=== PATIENT | male | born 1935 | race Caucasian/White ===

== ENCOUNTER 2016-11-08 22:56 | Observation (INO) ==
--- NOTE | 2016-11-08 23:14 | Emergency Department Note ---
Disposition Clinical Impression: Acute exacerbation of chronic obstructive airways disease Disposition: Admitted As Inpatient Condition: Fair Instructions: Chronic Obstructive Pulmonary Disease (ED) Referrals: Kev Colindres DO [Primary Care Provider] - Time of Disposition: 01:00 SOB HPI - General Stated Complaint: Difficulty Breathing Source: patient Limitations: no limitations Nursing Notes Reviewed: Yes Vital Signs Reviewed: Yes - History of Present Illness Over the last 2 days Mr. Tian has had gradual onset of increased shortness of breath with productive cough. No nausea vomiting or diarrhea. No chest pain no palpitations. No myalgias. No fevers that he knows of. He does have a known diagnosis of COPD and continues to smoke cigarettes. He does not have home oxygen. He was brought by squad today because of his difficulty breathing. Pt Subjective Complaint: shortness of breath, cough - Related Data Home Medications Medication Instructions Recorded Confirmed Ascorbic Acid [Vitamin C] 500 mg PO DAILY 09/17/15 11/08/16 Clopidogrel [Plavix] 75 mg PO DAILY 09/17/15 11/08/16 Digoxin [Lanoxin] 0.125 mg PO DAILY 09/17/15 11/08/16 Ferrous Sulfate [Iron] 325 mg PO DAILY 09/17/15 11/08/16 Hydrocodone/Acetaminophen [[place] 1 each PO BID 09/17/15 11/08/16 5-325 Tablet] Metoprolol [Lopressor] 100 mg PO BID 09/17/15 11/08/16 NIFEdipine [Nifedipine ER] 60 mg PO DAILY 09/17/15 11/08/16 Omeprazole [PriLOSEC] 20 mg PO DAILY 09/17/15 11/08/16 Simvastatin [Zocor] 20 mg PO HS 09/17/15 11/08/16 Previous Rx's Medication Instructions Recorded Meclizine [Antivert] 12.5 mg PO TID #9 tablet 09/17/15 Allergies Allergy/AdvReac Type Severity Reaction Status Date / Time acetaminophen Allergy Dizziness Verified 11/08/16 23:03 [From Darvocet-N 100] propoxyphene Allergy Dizziness Verified 11/08/16 23:03 [From Darvocet-N 100] Constitutional: Denies: fever, chills ENT ED: Reports: congestion Cardiovascular: Reports: dyspnea on exertion. Denies: chest pain, palpitations Respiratory: Reports: cough, dyspnea, sputum production. Denies: hemoptysis Gastrointestinal: Denies: nausea, vomiting, diarrhea Musculoskeletal: Denies: myalgia Neurological: Denies: headache Endocrine: Reports: fatigue Past Medical History - Past Medical History Medical history: Reports: atrial fibrillation, GERD, hyperlipidemia, hypertension Psychiatric history: Reports: no psych history - Social History Smoking Status: Current every day smoker Smokeless Tobacco Status: No Alcohol use: Reports: none Drug use: Reports: none Physical Exam - General Limitations: no limitations General appearance: alert, in distress (Accessory muscle use but able to speak in full sentences) - Head Head exam: atraumatic, normocephalic - Eye Eye exam: Present: normal appearance - ENT ENT exam: normal exam, normal oropharynx, mucous membranes moist, TM's normal bilaterally, normal external ear exam - Neck Neck exam: Present: normal inspection. Absent: lymphadenopathy - Chest Chest inspection: Present: normal inspection, symmetric chest wall rise - Respiratory Respiratory exam: Present: wheezes (Very tight inspiratory expiratory wheezes with decreased air exchange bilaterally symmetrically.) - Cardiovascular Cardiovascular exam: Present: tachycardia, normal heart sounds. Absent: systolic murmur, diastolic murmur - Abdominal Exam Abdominal exam: Present: soft, Non-Tender - Extremities Exam Extremities exam: Present: normal inspection, other (no calf edema erythema or cord). Absent: pedal edema, calf tenderness - Neurological Exam Neurological exam: Present: alert - Psychiatric Psychiatric exam: Present: normal affect, normal mood - Skin Skin exam: Present: warm, dry Course Vital Signs Temperature 100.9 F H 11/08/16 22:58 Pulse Rate 106 11/08/16 22:58 Respiratory Rate 20 11/08/16 22:58 Blood Pressure 178/101 11/08/16 22:58 O2 Sat by Pulse Oximetry 93 11/08/16 22:58 Temperature 100.9 F H 11/08/16 22:58 Pulse Rate 108 11/09/16 01:10 Respiratory Rate 20 11/09/16 01:10 Blood Pressure 175/74 11/09/16 01:10 O2 Sat by Pulse Oximetry 88 11/09/16 01:10 Oxygen Delivery Oxygen Delivery Room Air Shortness of Breath/Dyspnea - MDM Narrative Medical decision making narrative: Shortness of breath secondary to acute exacerbation of COPD. He is febrile but symptoms are not consistent with influenza nor is there any radiographic or auscultation evidence for pneumonia. He was feeling somewhat better after 2 DuoNeb's and indeed he was not retracting but resting comfortably. He continues to have coarse inspiratory and expiratory wheezes but much less accessory muscle use. Room air saturations were 88%. He does not have home oxygen and therefore will be prudent to have him come in to the hospital secondary to this hypoxia. He will be started on Levaquin and get every 4 hour DuoNeb's along with Solu-Medrol. He does not appear as though there is a cardiac etiology for his symptoms and COPD exacerbation is more likely than a pulmonary embolus regarding a pulmonary etiology. He is in somewhat improved condition as he is transferred to the floor from the ER. - Lab Data Lab results reviewed: Yes I reviewed the patient's lab results. Result diagrams: 11/08/16 23:57 11/08/16 23:57 Lab Results 11/08/16 11/08/16 11/08/16 Range/Units 23:57 23:57 23:57 WBC 8.7 (4.3-11.1) K/mcL RBC 3.82 L (4.19-5.50) M/mcL Hgb 12.7 L (12.9-16.9) g/dL Hct 37.4 L (37.5-50.1) % MCV 97.9 (83.0-100.0) fL MCH 33.2 (28.0-33.3) pg MCHC 34.0 (31.6-35.5) g/dL RDW 15.6 H (11.5-14.5) % Plt Count 135 L (140-400) K/mcL MPV 10.0 (9.4-12.4) fL Immature Gran % 0.3 (0-4) % Seg Neutrophils % 82.7 % Lymphocytes % 6.7 % Monocytes % 9.9 % Eosinophils % 0.2 % Basophils % 0.2 % Neutrophils # 7.2 (1.6-8.9) K/mcL Lymphocytes # 0.6 (0.6-4.6) K/mcL Monocytes # 0.9 (0.0-1.3) K/mcL Eosinophils # 0.0 (0.0-0.6) K/mcL Basophils # 0.0 (0.0-0.2) K/mcL D-Dimer 1120 H (0-500) ng/mLFEU Sodium 137 (136-145) mEq/L Potassium 3.9 (3.5-4.5) mEq/L Chloride 104 (98-109) mEq/L Carbon Dioxide 20 (19-29) mEq/L BUN 29 H (8-26) mg/dL Creatinine 1.66 H (0.72-1.25) mg/dL Est GFR ( Amer) 48 L (> 60) Est GFR (Non-Af Amer) 40 L (> 60) BUN/Creatinine Ratio 17 (6-26) Glucose 129 H (70-99) mg/dL Calculated Osmolality 292 (280-300) Calcium 9.4 (8.6-10.8) mg/dL Total Bilirubin 0.4 (0.2-1.2) mg/dL AST 17 (5-34) Units/L ALT 15 (0-55) Units/L Alkaline Phosphatase 99 (38-126) Units/L Troponin I (0-0.03) ng/mL B-Natriuretic Peptide (0-100) pg/mL Serum Total Protein 7.9 (6.0-8.3) g/dL Albumin 3.5 (3.5-5.0) g/dL Globulin 4.4 H (2.4-3.5) g/dL Albumin/Globulin Ratio 0.8 L (1.1-2.2) 11/08/16 11/08/16 Range/Units 23:57 23:57 WBC (4.3-11.1) K/mcL RBC (4.19-5.50) M/mcL Hgb (12.9-16.9) g/dL Hct (37.5-50.1) % MCV (83.0-100.0) fL MCH (28.0-33.3) pg MCHC (31.6-35.5) g/dL RDW (11.5-14.5) % Plt Count (140-400) K/mcL MPV (9.4-12.4) fL Immature Gran % (0-4) % Seg Neutrophils % % Lymphocytes % % Monocytes % % Eosinophils % % Basophils % % Neutrophils # (1.6-8.9) K/mcL Lymphocytes # (0.6-4.6) K/mcL Monocytes # (0.0-1.3) K/mcL Eosinophils # (0.0-0.6) K/mcL Basophils # (0.0-0.2) K/mcL D-Dimer (0-500) ng/mLFEU Sodium (136-145) mEq/L Potassium (3.5-4.5) mEq/L Chloride (98-109) mEq/L Carbon Dioxide (19-29) mEq/L BUN (8-26) mg/dL Creatinine (0.72-1.25) mg/dL Est GFR ( Amer) (> 60) Est GFR (Non-Af Amer) (> 60) BUN/Creatinine Ratio (6-26) Glucose (70-99) mg/dL Calculated Osmolality (280-300) Calcium (8.6-10.8) mg/dL Total Bilirubin (0.2-1.2) mg/dL AST (5-34) Units/L ALT (0-55) Units/L Alkaline Phosphatase (38-126) Units/L Troponin I 0.01 (0-0.03) ng/mL B-Natriuretic Peptide 11 (0-100) pg/mL Serum Total Protein (6.0-8.3) g/dL Albumin (3.5-5.0) g/dL Globulin (2.4-3.5) g/dL Albumin/Globulin Ratio (1.1-2.2) - Radiology Data Radiology results reviewed: Yes I reviewed the patient's radiology results. - EKG Data EKG attestation: Yes I reviewed and interpreted this EKG. EKG results narrative: EKG as interpreted by me sinus tachycardia 105 bpm. Normal axis. No evidence of hypertrophy. No T wave abnormalities. Upsloping ST depressions in V4 V5 V6. No ST elevations. Compared to August [address] depressions appear to be new.
[2016-11-08] MEDS ORDERED: Ipratropium/Albuterol Neb 3 ML IH ONE ×2 (23:33→23:35)
[2016-11-09 00:10] LABS: Basophils % 0.2 %; Eosinophils % 0.2 %; Hematocrit 37.4 % (37.5-50.1); Hemoglobin 12.7 g/dL (12.9-16.9); Immature Granulocytes % 0.3 % (0-4); Lymphocytes # 0.6 K/mcL (0.6-4.6); Lymphocytes % 6.7 %; Mean Corpuscular Hemoglobin 33.2 pg (28.0-33.3); Mean Corpuscular Volume 97.9 fL (83.0-100.0); Monocytes # 0.9 K/mcL (0.0-1.3); Monocytes % 9.9 %; Neutrophils # 7.2 K/mcL (1.6-8.9); Platelet Count 135 K/mcL (140-400); Red Blood Count 3.82 M/mcL (4.19-5.50); Red Cell Distribution Width 15.6 % (11.5-14.5); Segmented Neutrophils % 82.7 %
[2016-11-09 00:45] LABS: Albumin 3.5 g/dL (3.5-5.0); Albumin/Globulin Ratio 0.8 (1.1-2.2); Bilirubin,Total 0.4 mg/dL (0.2-1.2); Calcium 9.4 mg/dL (8.6-10.8); Globulin 4.4 g/dL (2.4-3.5); Potassium 3.9 mEq/L (3.5-4.5); Total Protein 7.9 g/dL (6.0-8.3)
[2016-11-09] MEDS ORDERED: MethylPREDNISolone 40 MG/ML VIAL IVP ONE (01:46)
[2016-11-09] MEDS ORDERED: Acetaminophen 325 MG TABLET PO PRN (01:46)
[2016-11-09] MEDS ORDERED: Ondansetron 4 MG/2 ML VIAL IVP PRN (01:46)
[2016-11-09] MEDS ORDERED: Naloxone 0.4 MG/ML INJ IVP PRN (01:46)
[2016-11-09] MEDS ORDERED: MOM Conc 10 ML UD.LIQ PO PRN (01:46)
[2016-11-09] MEDS: Levofloxacin 500 MG/100 ML 500 MG/100 ML BAG IVPB SCH (03:10)
[2016-11-09] MEDS: Ipratropium/Albuterol Neb 3 ML IH SCH ×5 (03:24→22:15)
[2016-11-09] MEDS: *HR* Enoxaparin 40 MG/0.4 ML SYRINGE SQ SCH ×2 (03:55→04:33)
[2016-11-09 05:49] LABS: Basophils % 0.1 %; Hematocrit 34.3 % (37.5-50.1); Hemoglobin 11.8 g/dL (12.9-16.9); Immature Granulocytes % 0.4 % (0-4); Lymphocytes # 0.5 K/mcL (0.6-4.6); Mean Corpuscular HGB Conc 34.4 g/dL (31.6-35.5); Mean Corpuscular Hemoglobin 33.4 pg (28.0-33.3); Mean Corpuscular Volume 97.2 fL (83.0-100.0); Mean Platelet Volume 10.2 fL (9.4-12.4); Monocytes # 0.4 K/mcL (0.0-1.3); Monocytes % 4.1 %; Neutrophils # 8.1 K/mcL (1.6-8.9); Platelet Count 129 K/mcL (140-400); Red Blood Count 3.53 M/mcL (4.19-5.50); Red Cell Distribution Width 15.5 % (11.5-14.5); Segmented Neutrophils % 90.4 %
[2016-11-09 06:01] LABS: Albumin 3.3 g/dL (3.5-5.0); Albumin/Globulin Ratio 0.8 (1.1-2.2); Bilirubin,Total 0.4 mg/dL (0.2-1.2); Calcium 9.4 mg/dL (8.6-10.8); Globulin 4.2 g/dL (2.4-3.5); Potassium 4.2 mEq/L (3.5-4.5); Total Protein 7.5 g/dL (6.0-8.3)
[2016-11-09] MEDS ORDERED: *HR* Enoxaparin 40 MG/0.4 ML SYRINGE SQ SCH (07:00)
[2016-11-09] MEDS ORDERED: Levofloxacin 500 MG/100 ML 500 MG/100 ML BAG IVPB SCH ×2 (09:00)
[2016-11-09] MEDS ORDERED: *HR* Digoxin 0.125 MG TABLET PO SCH (12:00)
[2016-11-09] MEDS ORDERED: NIFEdipine XL (24 HR) 60 MG TAB.ER.24 PO SCH (12:00)
[2016-11-09] MEDS: Metoprolol 100 MG TABLET PO SCH (12:55)
[2016-11-09] MEDS: NIFEdipine XL (24 HR) 30 MG TAB.ER.24 PO SCH (13:08)
--- NOTE | 2016-11-09 13:12 | Internal Med History&Physical ---
Date of Encounter: 11/09/16 Time of Encounter: 13:10 Assessment and Plan (1) Acute exacerbation of chronic obstructive airways disease Current visit: Yes Status: Chronic Continue pulmonate treatment and IV antibiotics. Continue to monitor blood sugar Internal Medicine - H&P: HPI Admitted From: Emergency Dept Plans for Post Hospital Care: Home History of present illness: Mr. Tian is a 81 year old male Over the last 2 days Mr. Tian has had gradual onset of increased shortness of breath with productive cough. No nausea vomiting or diarrhea. No chest pain no palpitations. No myalgias. No fevers that he knows of. He does have a known diagnosis of COPD and continues to smoke cigarettes. He does not have home oxygen. He was brought by squad today because of his difficulty breathing. He is admitted for primary treatment. Monitor oxygenation. Antibiotics. Past Med Surg Social Fam HX - Past Medical History Medical history: atrial fibrillation, GERD, hyperlipidemia, hypertension Psychiatric history: no psych history - Social History Smoking Status: Current every day smoker Packs per day: 1-2 Smokeless Tobacco Status: No Alcohol use: none Drug use: none - Family History Father History Unknown: Yes Internal Medicine - H&P: Meds Ascorbic Acid [Vitamin C] 500 mg PO DAILY 09/17/15 [History] Clopidogrel [Plavix] 75 mg PO DAILY 09/17/15 [History] Digoxin [Lanoxin] 0.125 mg PO DAILY 09/17/15 [History] Ferrous Sulfate [Iron] 325 mg PO DAILY 09/17/15 [History] Hydrocodone/Acetaminophen [[place] 5-325 Tablet] 1 each PO BID 09/17/15 [History] Meclizine [Antivert] 12.5 mg PO TID #9 tablet 09/17/15 [Rx] Metoprolol [Lopressor] 100 mg PO BID 09/17/15 [History] NIFEdipine [Nifedipine ER] 60 mg PO DAILY 09/17/15 [History] Omeprazole [PriLOSEC] 20 mg PO DAILY 09/17/15 [History] Simvastatin [Zocor] 20 mg PO HS 09/17/15 [History] Allergies acetaminophen [From Darvocet-N 100] Allergy (Verified 11/08/16 23:03) Dizziness propoxyphene [From Darvocet-N 100] Allergy (Verified 11/08/16 23:03) Dizziness All Systems PM: A 10-system review of systems was performed and is negative for pertinent findings except as documented above in the HPI. - Constitutional Constitutional: fatigue - Cardiovascular Cardiovascular ROS IM: no chest pain, no diaphoresis, no dyspnea, no lightheadedness, no palpitations, no syncope - Respiratory Respiratory: cough, dyspnea, dyspnea on exertion, wheezing - Gastrointestinal Gastrointestinal: no abdominal pain, no diarrhea, no hematemesis, no hematochezia, no melena, no nausea, no vomiting - Musculoskeletal Musculoskeletal ROS IM: no numbness, no tingling - Integumentary Integumentary IM: no rash, no unusual bruising - Constitutional Vitals: Temp Pulse Resp BP Pulse Ox 97.5 F L 18 88 202/105 94 11/09/16 11:00 11/09/16 11:00 11/09/16 11:00 11/09/16 11:11/09/16 11:00 General appearance: Present: A&O X 3, pleasant, no acute distress - Respiratory Respiratory exam: Present: rhonchi, wheezes - Cardiovascular Cardiovascular exam: Present: irregular rhythm - GI/Abdominal GI/Abdominal exam: Present: normal bowel sounds, soft, no peritoneal signs. Absent: distended, tenderness - Extremities Exam Extremities exam: Present: warm, radial pulses palpable and symetrical. Absent : calf tenderness, cyanotic, pedal edema - Neurological Exam Neurological exam: Present: CN II-XII intact, oriented X3, no focal deficits. Absent: pronater drift, facial droop, speech deficit Internal Med - H&P Results - Labs CBC & Chem 7: 11/09/16 05:43 11/09/16 05:43 Labs: Short CBC 11/09/16 Range/Units 05:43 WBC 9.0 (4.3-11.1) K/mcL Hgb 11.8 L (12.9-16.9) g/dL Hct 34.3 L (37.5-50.1) % Plt Count 129 L (140-400) K/mcL Neutrophils # 8.1 (1.6-8.9) K/mcL BMP 11/09/16 05:43 Sodium 137 Potassium 4.2 Chloride 104 Carbon Dioxide 21 BUN 25 Creatinine 1.44 H Glucose 146 H Calcium 9.4 Cardiac Enzymes 11/09/16 11/09/16 Range/Units 05:43 12:10 Troponin I 0.00 0.00 (0-0.03) ng/mL Liver Function 11/09/16 Range/Units 05:43 Total Bilirubin 0.4 (0.2-1.2) mg/dL AST 15 (5-34) Units/L ALT 14 (0-55) Units/L Alkaline Phosphatase 92 (38-126) Units/L Albumin 3.3 L (3.5-5.0) g/dL - VTE Documentation of Mechanical Device: Graduated compression elastic hosiery
[2016-11-09] MEDS ORDERED: Ascorbic Acid 500 MG TABLET PO SCH ×2 (21:00)
[2016-11-10] MEDS: Ipratropium/Albuterol Neb 3 ML IH SCH ×4 (01:00→13:07)
[2016-11-10] MEDS: *HR* Enoxaparin 40 MG/0.4 ML SYRINGE SQ SCH (06:26)
[2016-11-10] MEDS: Metoprolol 100 MG TABLET PO SCH (08:19)
[2016-11-10] MEDS: NIFEdipine XL (24 HR) 30 MG TAB.ER.24 PO SCH (08:19)
[2016-11-10] MEDS: Levofloxacin 500 MG/100 ML 500 MG/100 ML BAG IVPB SCH (08:40)
[2016-11-10] MEDS ORDERED: *HR* Digoxin 0.125 MG TABLET PO SCH (09:00)
[2016-11-10 11:43] VITALS: BP 120/66
--- NOTE | 2016-11-10 14:58 | Discharge Summary ---
Date of Encounter: 11/10/16 Time of Encounter: 14:56 - Discharge Diagnosis (1) Acute exacerbation of chronic obstructive airways disease Priority: Primary Status: Chronic - Discharge Medications Home Medications: Ascorbic Acid [Vitamin C] 500 mg PO DAILY 09/17/15 [History] Clopidogrel [Plavix] 75 mg PO DAILY 09/17/15 [History] Digoxin [Lanoxin] 0.125 mg PO DAILY 09/17/15 [History] Ferrous Sulfate [Iron] 325 mg PO DAILY 09/17/15 [History] Hydrocodone/Acetaminophen [[place] 5-325 Tablet] 1 each PO BID 09/17/15 [History] Meclizine [Antivert] 12.5 mg PO TID #9 tablet 09/17/15 [Rx] Metoprolol [Lopressor] 100 mg PO BID 09/17/15 [History] NIFEdipine [Nifedipine ER] 60 mg PO DAILY 09/17/15 [History] Omeprazole [PriLOSEC] 20 mg PO DAILY 09/17/15 [History] Simvastatin [Zocor] 20 mg PO HS 09/17/15 [History] Allergies/Adverse Reactions: Allergies acetaminophen [From Darvocet-N 100] Allergy (Verified 11/08/16 23:03) Dizziness propoxyphene [From Darvocet-N 100] Allergy (Verified 11/08/16 23:03) Dizziness Procedures/tests Complete & Pending: Procedures Performed prior 72 hours Category Date Time Status ECG 12 lead ECG [ECG] Routine Y 11/08/16 23:02 Completed Date of admission: 11/09/16 01:42 Primary care physician: Kev Colindres Discharging clinician: Stephan Hanson Anticipated date of discharge: 11/10/16 - Patient Status Disposition: Home, Self-Care Condition: Good Functional capacity at discharge: independent ambulation Overall status at discharge: patient is progressing back to baseline - Discharge Instructions Instructions: How to Stop Smoking (DC), Chronic Obstructive Pulmonary Disease ( ED) Follow Up With: yazmin colindres [Other] - 11/17/16 11:00 am Forms: ED Satisfaction Letter Additional Instructions: Follow-up appointments: If there is not an appointment listed below, please call your physician and schedule a follow-up appointment. If you have congestive heart failure and your symptoms return, make an appointment with your physician. Medication List: Carry an up to date list of medications you are taking at all time. We have given you an updated medication list including any new medications that you have been prescribed. Please provide that list to your primary provider Symptoms: If your condition changes or you experience any of the following symptoms, notify your physician immediately: Unusual or worsening pain, fever, persistent nausea and vomiting, bleeding, increase in swelling (especially in your legs), sudden weight gain, extreme dizziness, chest pain, increased drainage or redness from a wound or incision. Go to the emergency department if you experience a problem with breathing. Weights: If you have a history of swelling or shortness of breath, weigh yourself daily and notify your physician if you have a weight gain of two or more pounds in one day or 5 or more pounds in a week. If you experience any of the warning signs for stroke: Sudden numbness or weakness of the face, arm or leg; especially on one side of the body, sudden confusion, trouble speaking or understanding, sudden trouble seeing in one or both eyes, sudden trouble walking, dizziness, loss of balance or coordination, sudden sever headache with no cause; Call 911 or go to the emergency room. Stroke is a medical emergency. Some risk factors for stroke: Age, cigarette smoking, diabetes, excessive alcohol consumption, family history , high blood pressure, overweight, physical inactivity, prior stroke, heart attack, diagnosis of carotid artery stenosis or other artery disease. If you smoke, STOP: Smoking or tobacco use significantly increases your risk of heart and lung disease. Your chance of disease greatly increases if you continue to smoke. For more information, call the [place] tobacco quit line for smoking cessation QUIT-NOW ( ) - Diet and Activity Activity: increase activity as tolerated Diet: advance to your usual diet Interval History: admitted for increased shortness of breath. He unfortunately continues to smoke. Hospital course: Mr. Tian is a 81 year old male Patient is up and about states he feels great DC'd the IV and is ambulating in the [place]. I noted back cigarettes in his shirt pocket Time spent discussing smoking cessation with patient: 3 to 10 minutes - Time Spent with Patient Total time spent providing and/or coordinating discharge services: Less than 30 minutes - Constitutional Vitals: Temp Pulse Resp BP Pulse Ox 98.2 F 65 18 120/66 92 11/10/16 11:42 11/10/16 11:42 11/10/16 11:42 11/10/16 11:42 11/10/16 11:42 General appearance: Present: A&O X 3, pleasant, no acute distress - Head Head exam: Present: atraumatic, normal inspection, normocephalic - Neck Neck exam general surgery: Present: supple, trachea midline. Absent: lymphadenopathy - Respiratory Respiratory exam: Present: CTAB. Absent: accessory muscle use, rales, rhonchi, wheezes - Cardiovascular Cardiovascular exam: Present: RRR, +S1, +S2. Absent: diastolic murmur, gallop, rubs, systolic murmur - VTE Documentation of Mechanical Device: Graduated compression elastic hosiery
--- NOTE | 2016-11-10 21:28 | Electrocardiograph Report ---
[place] [id number] Test Date: 2016-11-08 Pat Name: Lizandro Tian Department: 2000 Room: 116 Gender: M Purification Director: RKJ : 1935 Requested By: Stephan Hanson Order Number: [id number] Reading MD: Blayne Ryan MD Measurements Intervals [place] Rate: 104 P: 65 IA: 162 QRS: 83 QRSD: 95 T: 65 QT: 340 QTc: 401 Interpretive Statements SINUS TACHYCARDIA BASELINE ARTIFACT Electronically Signed On 11-10-2016 21:27:03 EDT by Blayne Ryan MD
== END 2016-11-10 15:15 | disposition home or self-care (01) ==
LOC: INPGRE 22:56 → EMEROOGRE 22:56 → INPGRE 11-09 01:50
PROVIDERS: ADMIT Internal Medicine; ATTEND Internal Medicine

== ENCOUNTER 2017-07-21 21:02 | Observation (INO) ==
[2017-07-21] MEDS ORDERED: 0.9 % Sodium Chloride 1,000 ML IVC ONE (21:32)
[2017-07-21] MEDS ORDERED: Ibuprofen 600 MG TABLET PO ONE (21:33)
--- NOTE | 2017-07-21 21:41 | Emergency Department Note ---
Disposition Clinical Impression: Community acquired pneumonia, Acute exacerbation of chronic obstructive airways disease, CAD (coronary artery disease), HTN (hypertension), History of AAA (abdominal aortic aneurysm) repair Disposition: Admitted As Inpatient Condition: Fair Referrals: Kev Colindres DO [Primary Care Provider] - Forms: ED Satisfaction Letter Time of Disposition: 23:09 ([facility] OBSV) Fever HPI - General Chief Complaint: ED Fever Stated Complaint: fever, weakness Time Seen by Provider: 07/21/17 21:08 Source: patient Mode of arrival: ambulatory Limitations: no limitations Nursing Notes Reviewed: Yes Vital Signs Reviewed: Yes - History of Present Illness HPI Narrative: Patient presents to emergency room with fever chills cough congestion runny nose and sore throat generalized body aches unable to get better patient states he has been sick for about a week he started with Robitussin last week he denies any blurred vision double vision loss vision he is adamant he has had no chest pain no chest pressure he has a known aortic aneurysm which is monitored any blurred vision double vision loss vision denies any diarrhea melena hematochezia hematemesis patient denies any knowledge of any known flu carriers near him Pt is aware of thoracic aneursym Pt Subjective Complaint: fever, malaise, rigors Onset (ago): Just [employer] Temperature Source: subjective Associated symptoms: Reports: chills, myalgias, headache, nasal congestion, sore throat, cough, nausea. Denies: rigors, rhinorrhea, stiff neck, chest pain , dyspnea, abdominal pain, vomiting, diarrhea, dysuria, rash, altered mental status, night sweats, weight loss Improves with: nothing Worsens with: nothing Treatments prior to arrival fever: acetaminophen, ibuprofen - Related Data Home Medications Medication Instructions Recorded Confirmed Ascorbic Acid [Vitamin C] 500 mg PO DAILY 09/17/15 07/21/17 Clopidogrel [Plavix] 75 mg PO DAILY 09/17/15 07/21/17 Digoxin [Lanoxin] 0.125 mg PO DAILY 09/17/15 07/21/17 Ferrous Sulfate [Iron] 325 mg PO DAILY 09/17/15 07/21/17 Metoprolol [Lopressor] 100 mg PO BID 09/17/15 07/21/17 NIFEdipine [Nifedipine ER] 60 mg PO DAILY 09/17/15 07/21/17 Omeprazole [PriLOSEC] 20 mg PO DAILY 09/17/15 07/21/17 Simvastatin [Zocor] 20 mg PO HS 09/17/15 07/21/17 Allergies Allergy/AdvReac Type Severity Reaction Status Date / Time acetaminophen Allergy Dizziness Verified 04/05/17 21:51 [From Darvocet-N 100] propoxyphene Allergy Dizziness Verified 04/05/17 21:51 [From Darvocet-N 100] All systems ED: reviewed and negative except as stated. Review of Systems: As Per HPI Constitutional: Reports: fever, chills Eyes: Denies: eye pain, eye discharge ENT ED: Reports: ear pain, throat pain, congestion Cardiovascular: Denies: chest pain, palpitations, dyspnea on exertion Respiratory: Reports: cough, wheezes, sputum production Gastrointestinal: Denies: abdominal pain, nausea, vomiting Genitourinary: Denies: urgency, dysuria, frequency Musculoskeletal: Denies: back pain, neck pain Integumentary: Denies: rash Neurological: Denies: headache, weakness Psychiatric: Denies: anxiety Endocrine: Denies: fatigue Hematological/Lymphatic: Denies: easy bleeding Allergic/Immunologic: Denies: facial swelling Fever PMH - Past Medical History Medical history: Reports: aortic aneurysm, atrial fibrillation, COPD, coronary artery disease, GERD, hyperlipidemia, hypertension, myocardial infarction Surgical history: Reports: other (renal artery stent, cardiac stent) Psychiatric history: Reports: no psych history - Social History Smoking Status: Current every day smoker Alcohol use: Reports: none Drug use: Reports: none Physical Exam - General Limitations: no limitations General appearance: alert, in no apparent distress, other (ill appearing) - Head Head exam: atraumatic, normocephalic, normal inspection - Eye Eye exam: Present: normal appearance, PERRL, EOMI - ENT ENT exam: normal exam, normal oropharynx, mucous membranes moist - Neck Neck exam: Present: normal inspection, full ROM, trachea midline. Absent: meningismus - Chest Chest inspection: Present: normal inspection, symmetric chest wall rise - Respiratory Respiratory exam: Present: prolonged expiratory phase, other (rhonci) - Cardiovascular Cardiovascular exam: Present: regular rate, normal rhythm, normal heart sounds - Abdominal Exam Abdominal exam: Present: soft, Non-Tender, normal bowel sounds. Absent: mass, pulsatile mass - Expanded Upper Extremity Exam Shoulder exam: Present: normal inspection, full ROM Arm exam: Present: normal inspection, full ROM Elbow exam: Present: normal inspection, full ROM Forearm/Wrist exam: Present: normal inspection, full ROM Hand exam: Present: normal inspection, full ROM Vascular exam: Normal: capillary refill, radial pulse - Expanded Lower Extremity Exam Hip/Pelvis exam: Present: normal inspection, full ROM Upper leg exam: Present: normal inspection, full ROM Knee exam: Present: normal inspection, full ROM Lower leg exam: Present: normal inspection, full ROM Ankle exam: Present: normal inspection, full ROM Foot/toe exam: Present: normal inspection, full ROM Neurovascular/Tendon exam: Present: normal capillary refill, normal fine/light touch. Absent: motor deficit, sensory deficit, tendon deficit Gait: observed and normal - Back Exam Back exam: Present: normal inspection, full ROM. Absent: muscle spasm - Neurological Exam Neurological exam: Present: alert, oriented X3, CN II-XII intact, normal gait - Psychiatric Psychiatric exam: Present: normal affect, normal mood - Skin Skin exam: Present: warm, dry, intact, normal color Course Course Narrative: Patient is seen and examined she meets sepsis criteria by the initial presentation of the tachycardia and the temperature respiratory rate waiting for the second criteria to see if he needs end organ based upon laboratory data chest x-ray did not show pneumonia but classically he presents like pneumonia and almost like an influenza that influenza swab was negative as result we did do a chest x-ray have recommended family admission hydration antibiosis patient appears to be agreeable Vital Signs Temperature 102.8 F H 07/21/17 21:08 Pulse Rate 98 07/21/17 21:08 Respiratory Rate 22 07/21/17 21:08 Blood Pressure 180/94 07/21/17 21:08 O2 Sat by Pulse Oximetry 93 07/21/17 21:08 Temperature 101.2 F H 07/21/17 22:44 Pulse Rate 92 07/21/17 22:44 Respiratory Rate 18 07/21/17 22:44 Blood Pressure 159/86 07/21/17 22:44 O2 Sat by Pulse Oximetry 95 07/21/17 22:44 Oxygen Delivery Oxygen Delivery Room Air Fever - Differential Diagnosis Likely: fever of occult origin, community acquired pneumonia, viral infection, sepsis, influenza - Medical Records Medical records reviewed: Yes I reviewed the patient's medical records. - Lab Data Lab results reviewed: Yes I reviewed the patient's lab results. Result diagrams: 07/21/17 21:40 07/21/17 21:40 Lab Results 07/21/17 07/21/17 07/21/17 Range/Units 21:40 21:40 21:40 WBC 14.0 H (4.3-11.1) K/mcL RBC 3.63 L (4.19-5.50) M/mcL Hgb 12.3 L (12.9-16.9) g/dL Hct 36.5 L (37.5-50.1) % MCV 100.6 H (83.0-100.0) fL MCH 33.9 H (28.0-33.3) pg MCHC 33.7 (31.6-35.5) g/dL RDW 15.8 H (11.5-14.5) % Plt Count 192 (140-400) K/mcL MPV 10.5 (9.4-12.4) fL Immature Gran % 0.6 (0-4) % Seg Neutrophils % 83.6 % Lymphocytes % 5.5 % Monocytes % 10.0 % Eosinophils % 0.2 % Basophils % 0.1 % Neutrophils # 11.7 H (1.6-8.9) K/mcL Lymphocytes # 0.8 (0.6-4.6) K/mcL Monocytes # 1.4 H (0.0-1.3) K/mcL Eosinophils # 0.0 (0.0-0.6) K/mcL Basophils # 0.0 (0.0-0.2) K/mcL PT 11.2 (9.4-12.1) Seconds INR 1.0 APTT 29.3 (26.0-36.0) Seconds Sodium 137 (136-145) mEq/L Potassium 4.4 (3.5-4.5) mEq/L Chloride 104 (98-109) mEq/L Carbon Dioxide 22 (19-29) mEq/L BUN 23 (8-26) mg/dL Creatinine 1.71 H (0.72-1.25) mg/dL Est GFR ( Amer) 47 L (> 60) Est GFR (Non-Af Amer) 38 L (> 60) BUN/Creatinine Ratio 13 (6-26) Glucose 145 H (70-99) mg/dL Calculated Osmolality 290 (280-300) Lactic Acid (0.5-2.2) mmol/L Calcium 10.1 (8.6-10.8) mg/dL Total Bilirubin 0.3 (0.2-1.2) mg/dL AST 30 (5-34) Units/L ALT 32 (0-55) Units/L Alkaline Phosphatase 118 (38-126) Units/L Serum Total Protein 8.2 (6.0-8.3) g/dL Albumin 3.6 (3.5-5.0) g/dL Globulin 4.6 H (2.4-3.5) g/dL Albumin/Globulin Ratio 0.8 L (1.1-2.2) 07/21/17 Range/Units 21:40 WBC (4.3-11.1) K/mcL RBC (4.19-5.50) M/mcL Hgb (12.9-16.9) g/dL Hct (37.5-50.1) % MCV (83.0-100.0) fL MCH (28.0-33.3) pg MCHC (31.6-35.5) g/dL RDW (11.5-14.5) % Plt Count (140-400) K/mcL MPV (9.4-12.4) fL Immature Gran % (0-4) % Seg Neutrophils % % Lymphocytes % % Monocytes % % Eosinophils % % Basophils % % Neutrophils # (1.6-8.9) K/mcL Lymphocytes # (0.6-4.6) K/mcL Monocytes # (0.0-1.3) K/mcL Eosinophils # (0.0-0.6) K/mcL Basophils # (0.0-0.2) K/mcL PT (9.4-12.1) Seconds INR APTT (26.0-36.0) Seconds Sodium (136-145) mEq/L Potassium (3.5-4.5) mEq/L Chloride (98-109) mEq/L Carbon Dioxide (19-29) mEq/L BUN (8-26) mg/dL Creatinine (0.72-1.25) mg/dL Est GFR ( Amer) (> 60) Est GFR (Non-Af Amer) (> 60) BUN/Creatinine Ratio (6-26) Glucose (70-99) mg/dL Calculated Osmolality (280-300) Lactic Acid 2.0 (0.5-2.2) mmol/L Calcium (8.6-10.8) mg/dL Total Bilirubin (0.2-1.2) mg/dL AST (5-34) Units/L ALT (0-55) Units/L Alkaline Phosphatase (38-126) Units/L Serum Total Protein (6.0-8.3) g/dL Albumin (3.5-5.0) g/dL Globulin (2.4-3.5) g/dL Albumin/Globulin Ratio (1.1-2.2) - Radiology Data Radiology results reviewed: Yes I reviewed the patient's radiology results. ITS Impressions Chest X-Ray 07/21/17 21:32 IMPRESSION: 1. No acute cardiopulmonary process identified. 2. Re- demonstration of thoracic aortic ectasia. D/ / Chepe Richardson MD / Chepe Richardson MD Interpreting Provider: Chepe Richardson MD - EKG Data EKG attestation: Yes I reviewed and interpreted this EKG. EKG results narrative: Sinus tach rate 101 by mouth 156 QRS 95 QT 327 axis -31 Critical Care Time Critical Care Time: Yes Total Critical Care Time: 35 Attestation: Critical care performed: 35 minutes as result of obtaining a CAT scan showing was consistent with a thoracic aneurysm but he is been worked up in addition for the possibility of an underlying pneumonia with patient meeting sepsis criteria after fluid bolus of 1 L patient was showing improved perfusion to the peripheral organs with brisk cap refill no cyanosis pink tissue strong peripheral pulses noted heart rate is improved blood pressure is down patient is afebrile lungs are still with rhonchi heart still slightly borderline tachycardic extremities show no peripheral edema mentation is clear Time is exclusive of separately billable procedures. Time includes: direct patient care, patient reassessment, coordination of patient care, interpretation of data (laboratory data, radiology data, and respiratory data), review of patient's medical records, medical consultation and documentation of patient care. Procedures included in critical care time: Procedures excluded from critical care time:
[2017-07-21 21:53] LABS: Basophils % 0.1 %; Eosinophils % 0.2 %; Hematocrit 36.5 % (37.5-50.1); Hemoglobin 12.3 g/dL (12.9-16.9); Immature Granulocytes % 0.6 % (0-4); Lymphocytes # 0.8 K/mcL (0.6-4.6); Lymphocytes % 5.5 %; Mean Corpuscular HGB Conc 33.7 g/dL (31.6-35.5); Mean Corpuscular Hemoglobin 33.9 pg (28.0-33.3); Mean Corpuscular Volume 100.6 fL (83.0-100.0); Mean Platelet Volume 10.5 fL (9.4-12.4); Monocytes # 1.4 K/mcL (0.0-1.3); Neutrophils # 11.7 K/mcL (1.6-8.9); Platelet Count 192 K/mcL (140-400); Red Blood Count 3.63 M/mcL (4.19-5.50); Red Cell Distribution Width 15.8 % (11.5-14.5); Segmented Neutrophils % 83.6 %
[2017-07-21 21:54] LABS: Prothrombin Time 11.2 Seconds (9.4-12.1)
[2017-07-21 21:56] LABS: Activated Partial Thrombo Time 29.3 Seconds (26.0-36.0)
[2017-07-21] MEDS ORDERED: Azithromycin 500 MG in D5% in Water 250 ML IVPB ONE (22:01)
[2017-07-21 22:04] LABS: Albumin 3.6 g/dL (3.5-5.0); Albumin/Globulin Ratio 0.8 (1.1-2.2); Bilirubin,Total 0.3 mg/dL (0.2-1.2); Calcium 10.1 mg/dL (8.6-10.8); Globulin 4.6 g/dL (2.4-3.5); Potassium 4.4 mEq/L (3.5-4.5); Total Protein 8.2 g/dL (6.0-8.3)
[2017-07-21] MEDS: 0.9 % Sodium Chloride 1,000 ML IVC SCH ×2 (22:54→23:33)
[2017-07-21] MEDS ORDERED: cloNIDine HCl 0.1 MG TABLET PO STA (23:06)
[2017-07-21] MEDS ORDERED: cefTRIAXone 2,000 MG in Water for inj. (sterile) 20 ML 20 ML IVP SCH (23:50)
[2017-07-21] MEDS ORDERED: Acetaminophen 325 MG TABLET PO PRN (23:50)
[2017-07-21] MEDS ORDERED: Azithromycin 500 MG in D5% in Water 250 ML IVPB SCH (23:50)
[2017-07-21] MEDS ORDERED: Ondansetron 4 MG/2 ML VIAL IVP PRN (23:50)
[2017-07-21] MEDS ORDERED: Naloxone 0.4 MG/ML INJ IVP PRN (23:50)
[2017-07-21] MEDS ORDERED: Ibuprofen 400 MG TABLET PO PRN (23:50)
[2017-07-22] MEDS: 0.9 % Sodium Chloride 1,000 ML IVC SCH ×5 (00:41→10:35)
[2017-07-22 01:57] LABS: Bilirubin,Urine Negative (Negative); Blood,Urine Negative (Negative); Clarity,Urine Slightly Cloudy (Clear); Glucose,Urine (UA) Normal (Normal); Ketones,Urine Negative (Negative); Leukocyte Esterase,Urine Small (Negative); Nitrite,Urine Negative (Negative); PH,Urine 5.5 pH Units (5.0-8.0); Protein,Urine 30 mg/dL (Neg-Trace); Specific Gravity,Urine 1.025 (1.010-1.025); Urobilinogen,Urine Normal (Normal)
[2017-07-22 02:00] LABS: Color,Urine Light Yellow (Yellow)
[2017-07-22 02:01] LABS: Bacteria,Urine Few per hpf (None-Few); Hyaline Casts,Urine Few per lpf (None-Few)
[2017-07-22 02:52] LABS: Basophils % 0.2 %; Eosinophils # 0.1 K/mcL (0.0-0.6); Eosinophils % 0.4 %; Hematocrit 30.6 % (37.5-50.1); Immature Granulocytes % 0.5 % (0-4); Lymphocytes # 1.8 K/mcL (0.6-4.6); Lymphocytes % 13.7 %; Mean Corpuscular HGB Conc 33.7 g/dL (31.6-35.5); Mean Corpuscular Hemoglobin 34.3 pg (28.0-33.3); Mean Platelet Volume 10.1 fL (9.4-12.4); Monocytes # 1.4 K/mcL (0.0-1.3); Monocytes % 10.5 %; Neutrophils # 9.9 K/mcL (1.6-8.9); Platelet Count 152 K/mcL (140-400); Red Cell Distribution Width 15.8 % (11.5-14.5); Segmented Neutrophils % 74.7 %
[2017-07-22 03:06] LABS: INR 1.1; Prothrombin Time 11.8 Seconds (9.4-12.1)
[2017-07-22 03:08] LABS: Activated Partial Thrombo Time 29.1 Seconds (26.0-36.0)
[2017-07-22 05:25] LABS: Hemoglobin 10.3 g/dL (12.9-16.9)
[2017-07-22] MEDS: NIFEdipine XL (24 HR) 30 MG TAB.ER.24 PO SCH (09:28)
[2017-07-22] MEDS: *HR* Digoxin 0.125 MG TABLET PO SCH (09:28)
[2017-07-22] MEDS: Ascorbic Acid 500 MG TABLET PO SCH (09:28)
[2017-07-22] MEDS: Metoprolol 100 MG TABLET PO SCH ×2 (09:28→20:18)
--- NOTE | 2017-07-22 11:46 | Internal Med Progress Note ---
Date of Encounter: 07/22/17 Time of Encounter: 11:44 - Assessment and plan (1) Community acquired pneumonia Current Visit: Yes Status: Acute Assessment and plan: improving. continue IV atb Qualifiers: Laterality: right Lung location: middle lobe of lung Qualified Code(s): J18.1 - Lobar pneumonia, unspecified organism (2) Acute exacerbation of chronic obstructive airways disease Current Visit: Yes Status: Chronic Assessment and plan: continue inhaled meds (3) Atrial fibrillation Current Visit: No Status: Chronic Assessment and plan: continue plavix. rate and rythm stable Qualifiers: Atrial fibrillation type: paroxysmal Qualified Code(s): I48.0 - Paroxysmal atrial fibrillation - Time Spent With Patient 25 - 35 minutes - Subjective Interval history: states cough and SOB has improved. denies fever, chills, NVD. VSS. O2 at 95 % RA. disscussed smoking cessation. was diagnosed with COPD a few years ago and continues to have a cough daily. smokes 1 pack a day. uses nebulizer at home. - Constitutional Vitals: Temp Pulse Resp BP Pulse Ox 97.6 F 74 16 142/77 95 07/22/17 07:34 07/22/17 07:34 07/22/17 07:34 07/22/17 07:34 07/22/17 07:34 General appearance: Present: A&O X 3, pleasant, no acute distress, answers questions appropriately - Head Head exam: Present: atraumatic, normocephalic - Eye Eye exam: Present: PERRL, conjuntiva pink, sclera anicteric Pupils: Present: PERRL - Neck Neck exam general surgery: Present: supple, trachea midline. Absent: lymphadenopathy - Respiratory Respiratory exam: Present: rhonchi, wheezes. Absent: accessory muscle use, rales Additional comments: scattered rhonchi and wheeze, cough present. - Cardiovascular Cardiovascular exam: Present: RRR, +S1, +S2. Absent: diastolic murmur, gallop, rubs, systolic murmur - GI/Abdominal GI/Abdominal exam: Present: normal bowel sounds, soft, no peritoneal signs. Absent: distended, tenderness - Extremities Exam Extremities exam: Present: warm, radial pulses palpable and symmetrical. Absent : calf tenderness, cyanotic, pedal edema - Neurological Exam Neurological exam: Present: CN II-XII intact, oriented X3, no focal deficits. Absent: pronater drift, facial droop, speech deficit - Skin Skin exam: Present: dry, intact Internal Medicine: Result - Labs CBC & Chem 7: 07/22/17 02:45 07/21/17 21:40 Labs: Short CBC 07/22/17 Range/Units 02:45 WBC 13.2 H (4.3-11.1) K/mcL Hgb 10.3 L D (12.9-16.9) g/dL Hct 30.6 L (37.5-50.1) % Plt Count 152 (140-400) K/mcL Neutrophils # 9.9 H (1.6-8.9) K/mcL Urine 07/22/17 Range/Units 01:50 Urine Color Light Yellow (Yellow) Urine Clarity Slightly Cloudy A (Clear) Urine pH 5.5 (5.0-8.0) pH Units Ur Specific [place] 1.025 (1.010-1.025) Urine Protein 30 H (Neg-Trace) mg/dL Urine Glucose (UA) Normal (Normal) mg/dL - ABG Interpretation ABG results: PT/INR, D-dimer PT 11.8 Seconds (9.4-12.1) 07/22/17 02:45 - VTE Documentation of Mechanical Device: Graduated compression elastic hosiery Consult Discharge Plan - Plan Referrals: Kev Colindres DO [Primary Care Provider] -
[2017-07-22] MEDS ORDERED: cefTRIAXone 1,000 MG in Water for inj. (sterile) 10 ML IVP ONE (12:15)
[2017-07-22] MEDS ORDERED: Azithromycin 500 MG in D5% in Water 250 ML IVPB SCH (18:00)
[2017-07-22] MEDS ORDERED: cefTRIAXone 2,000 MG in Water for inj. (sterile) 20 ML IVP SCH (18:00)
[2017-07-23] MEDS ORDERED: cefTRIAXone 2,000 MG in Water for inj. (sterile) 20 ML IVP SCH (09:00)
[2017-07-23] MEDS: Ascorbic Acid 500 MG TABLET PO SCH (09:59)
[2017-07-23] MEDS: *HR* Digoxin 0.125 MG TABLET PO SCH (09:59)
[2017-07-23] MEDS: Metoprolol 100 MG TABLET PO SCH (09:59)
[2017-07-23] MEDS: NIFEdipine XL (24 HR) 30 MG TAB.ER.24 PO SCH (09:59)
--- NOTE | 2017-07-23 10:41 | Internal Med Progress Note ---
Date of Encounter: 07/23/17 Time of Encounter: 10:38 - Assessment and plan (1) Community acquired pneumonia Current Visit: Yes Status: Acute Assessment and plan: Currently no acute issues. Lungs are clear to upper [place] with diminished bases. Patient to continue on IV antibiotics. No dyspnea or hypoxia. Continue with current plan of care Qualifiers: Laterality: right Lung location: middle lobe of lung Qualified Code(s): J18.1 - Lobar pneumonia, unspecified organism (2) HTN (hypertension) Current Visit: Yes Status: Chronic Assessment and plan: Vital signs stable. We will continue with current medications. Qualifiers: Hypertension type: essential hypertension Qualified Code(s): I10 - Essential (primary) hypertension (3) Atrial fibrillation Current Visit: No Status: Chronic Assessment and plan: No acute issues. Patient's heart rate has been less than 100. Vital signs are stable Qualifiers: Atrial fibrillation type: paroxysmal Qualified Code(s): I48.0 - Paroxysmal atrial fibrillation (4) CKD (chronic kidney disease), stage III Current Visit: No Status: Chronic Assessment and plan: No acute issues. Patient's creatinine is 1.7, which is a slight increase from his baseline of 1.5. BUN 23. We will continue with current medications. - Time Spent With Patient less than 15 minutes - Subjective Interval history: Patient appears relaxed and denies any discomforts or shortness of breath. Patient denies any productive cough. States that he feels he is ready to go home. - Constitutional Vitals: Temp Pulse Resp BP Pulse Ox 97.9 F 77 16 163/85 95 07/23/17 07:11 07/23/17 07:11 07/23/17 07:11 07/23/17 07:11 07/23/17 07:11 General appearance: Present: A&O X 3, pleasant, no acute distress, answers questions appropriately - Head Head exam: Present: atraumatic, normocephalic - Eye Eye exam: Present: PERRL, conjuntiva pink, sclera anicteric Pupils: Present: PERRL - Neck Neck exam general surgery: Present: supple, trachea midline. Absent: lymphadenopathy - Respiratory Respiratory exam: Present: CTAB. Absent: accessory muscle use, rales, rhonchi, wheezes Additional comments: Lungs are slightly diminished bases posteriorly - Cardiovascular Cardiovascular exam: Present: RRR, +S1, +S2. Absent: diastolic murmur, gallop, rubs, systolic murmur - GI/Abdominal GI/Abdominal exam: Present: normal bowel sounds, soft, no peritoneal signs. Absent: distended, tenderness - Extremities Exam Extremities exam: Present: warm, radial pulses palpable and symmetrical. Absent : calf tenderness, cyanotic, pedal edema - Neurological Exam Neurological exam: Present: CN II-XII intact, oriented X3, no focal deficits. Absent: pronater drift, facial droop, speech deficit - Skin Skin exam: Present: dry, intact Internal Medicine: Result - Labs CBC & Chem 7: 07/22/17 02:45 07/21/17 21:40 - ABG Interpretation ABG results: PT/INR, D-dimer PT 11.8 Seconds (9.4-12.1) 07/22/17 02:45 - Impressions Impressions Chest X-Ray 07/23/17 09:00 IMPRESSION: Stable right basilar airspace disease. D/ / Gray Lafleur MD / Gray Lafleur MD Interpreting Provider: Gray Lafleur MD - VTE Documentation of Mechanical Device: Graduated compression elastic hosiery Consult Discharge Plan - Plan Referrals: Kev Colindres DO [Primary Care Provider] -
[2017-07-23 11:57] VITALS: BP 164/81
--- NOTE | 2017-07-23 14:35 | Discharge Summary ---
Date of Encounter: 07/23/17 Time of Encounter: 14:32 - Discharge Diagnosis (1) Community acquired pneumonia Priority: Primary Status: Acute Comments: Patient's pulmonary status has improved over the past 24 hours. Patient currently denies any dyspnea or productive cough. Rise any chest discomforts. Patient requesting to go home. Patient has received IV antibiotics for the past 24 hours. Follow-up chest x-ray was improved and showed no acute infectious process noted. We will change to oral antibiotics with Levaquin and patient to continue on this medication for 7 days after his discharge. Will recommend patient to have a follow-up chest x-ray done in 30 days with his PCP. Patient also recommended to consult for pulmonology evaluation. Qualifiers: Laterality: right Lung location: middle lobe of lung Qualified Code(s): J18.1 - Lobar pneumonia, unspecified organism (2) HTN (hypertension) Priority: Secondary Status: Chronic Comments: No acute issues during hospital stay. Patient to continue on current medications after discharge and follow up PCP Qualifiers: Hypertension type: essential hypertension Qualified Code(s): I10 - Essential (primary) hypertension (3) Atrial fibrillation Priority: Secondary Status: Chronic Comments: No acute issues. Heart rate remains irregular but has been less than 100. Patient to continue on same medications after discharge. Qualifiers: Atrial fibrillation type: paroxysmal Qualified Code(s): I48.0 - Paroxysmal atrial fibrillation (4) CKD (chronic kidney disease), stage III Priority: Secondary Status: Chronic Comments: No acute issues. Patient's creatinine was 1.7 on admission. BUN 33. We will recommend patient to have follow-up blood work done in 30 days during his follow -up with PCP (5) History of AAA (abdominal aortic aneurysm) repair Priority: Secondary Status: Chronic Comments: Patient recommended for a vascular consult for evaluation of aortic aneurysm and evaluation for surgical intervention. Patient had a CAT scan done of the chest which showed his aortic aneurysm up to 7 cm in size. Patient recommended to keep systolic blood pressure less than 150 - Discharge Medications Prescriptions: Albuterol Neb [Proventil Neb] 2.5 mg IH Q6HR #100 vial.neb levoFLOXacin [Levaquin] 750 mg PO DAILY #7 tablet Home Medications: Ascorbic Acid [Vitamin C] 500 mg PO DAILY 09/17/15 [History] Clopidogrel [Plavix] 75 mg PO DAILY 09/17/15 [History] Digoxin [Lanoxin] 0.125 mg PO DAILY 09/17/15 [History] Ferrous Sulfate [Iron] 325 mg PO DAILY 09/17/15 [History] Metoprolol [Lopressor] 100 mg PO BID 09/17/15 [History] NIFEdipine [Nifedipine ER] 60 mg PO DAILY 09/17/15 [History] Omeprazole [PriLOSEC] 20 mg PO DAILY 09/17/15 [History] Simvastatin [Zocor] 20 mg PO HS 09/17/15 [History] Albuterol Neb [Proventil Neb] 2.5 mg IH Q6HR #100 vial.neb 07/23/17 [Rx] levoFLOXacin [Levaquin] 750 mg PO DAILY #7 tablet 07/23/17 [Rx] Allergies/Adverse Reactions: 3 Allergy/AdvReac Type Severity Reaction Status Date / Time acetaminophen Allergy Dizziness Verified 04/05/17 21:51 [From Darvocet-N 100] propoxyphene Allergy Dizziness Verified 04/05/17 21:51 [From Darvocet-N 100] Date of admission: 07/21/17 23:32 Primary care physician: Kev Colindres Discharging clinician: Andrea Guzman Anticipated date of discharge: 07/23/17 - Patient Status Disposition: Home, Self-Care Condition: Fair Functional capacity at discharge: independent ambulation Overall status at discharge: patient is progressing back to baseline - Discharge Instructions Instructions: Pneumonia (DC) Follow Up With: Kev Colindres DO [Primary Care Provider] - 07/30/17 2:00 pm (Will see Terrence Glez CNP) Additional Instructions: Patient recommended to make a appointment with a railroad hand for continued evaluation and treatment of his advanced COPD. Recommended for patient to make appointment to vascular surgery for evaluation and treatment of his aortic aneurysm. - Diet and Activity Activity: increase activity as tolerated Diet: advance to your usual diet Hospital course: Mr. Tian is a 82 year old male presented in the ED with complaints of shortness of breath and flulike symptoms. Patient has a long history of advanced COPD. patient had a chest x-ray and a CT of the chest performed which showed a right middle lobe infiltrate. Patient was given fluid resuscitation with IV fluids and started on IV antibiotics of Rocephin and azithromycin. On second day patient states that he denied any dyspnea or productive cough. Repeat chest x-ray was obtained which shows no acute infectious process. Patient mobilized well. Vital signs are stable. Patient's IV antibiotics were changed to oral Levaquin and patient was prepared for discharge. - Time Spent with Patient Total time spent providing and/or coordinating discharge services: Less than 30 minutes - Constitutional Vitals: Temp Pulse Resp BP Pulse Ox 97.6 F 64 16 164/81 96 07/23/17 11:56 07/23/17 11:56 07/23/17 11:56 07/23/17 11:56 07/23/17 11:56 General appearance: Present: A&O X 3, pleasant, no acute distress, answers questions appropriately - Head Head exam: Present: atraumatic, normocephalic - Eye Eye exam: Present: PERRL, conjuntiva pink, sclera anicteric Pupils: Present: PERRL - Neck Neck exam general surgery: Present: supple, trachea midline. Absent: lymphadenopathy - Respiratory Respiratory exam: Present: CTAB. Absent: accessory muscle use, rales, rhonchi, wheezes Additional comments: Lungs clear throughout upper [place] with diminished posterior bases. No productive cough. Respiratory effort is relaxed and regular - Cardiovascular Cardiovascular exam: Present: RRR, +S1, +S2. Absent: diastolic murmur, gallop, rubs, systolic murmur - GI/Abdominal GI/Abdominal exam: Present: normal bowel sounds, soft, no peritoneal signs. Absent: distended, tenderness - Extremities Exam Extremities exam: Present: warm, radial pulses palpable and symmetrical. Absent : calf tenderness, cyanotic, pedal edema - Neurological Exam Neurological exam: Present: CN II-XII intact, oriented X3, no focal deficits. Absent: pronater drift, facial droop, speech deficit - Skin Skin exam: Present: dry, intact - VTE Documentation of Mechanical Device: Graduated compression elastic hosiery
--- NOTE | 2017-07-23 19:25 | Electrocardiograph Report ---
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
[2017-07-24] MEDS ORDERED: levoFLOXacin 750 MG TABLET PO SCH (09:00)
== END 2017-07-23 15:48 | disposition home or self-care (01) ==
LOC: EMEROOGRE 21:02 → INPGRE 21:02
PROVIDERS: ADMIT Internal Medicine; ATTEND Internal Medicine

== ENCOUNTER 2019-12-12 12:23 | Observation (INO) ==
[2019-12-12] MEDS ORDERED: 0.9 % Sodium Chloride 1,000 ML IVC ONE (12:53)
[2019-12-12 13:07] LABS: Basophils % 0.3 %; Eosinophils % 0.6 %; Hematocrit 35.4 % (37.5-50.1); Hemoglobin 11.7 g/dL (12.9-16.9); Immature Granulocytes % 0.3 % (0-4); Lymphocytes # 0.7 K/mcL (0.6-4.6); Lymphocytes % 9.8 %; Mean Corpuscular HGB Conc 33.1 g/dL (31.6-35.5); Mean Corpuscular Hemoglobin 33.8 pg (28.0-33.3); Mean Corpuscular Volume 102.3 fL (83.0-100.0); Mean Platelet Volume 11.5 fL (9.4-12.4); Monocytes # 0.4 K/mcL (0.0-1.3); Monocytes % 5.7 %; Platelet Count 141 K/mcL (140-400); Red Blood Count 3.46 M/mcL (4.19-5.50); Red Cell Distribution Width 15.6 % (11.5-14.5); Segmented Neutrophils % 83.3 %; White Blood Count 7.2 K/mcL (4.3-11.1)
[2019-12-12 13:10] LABS: INR 1.1
[2019-12-12 13:12] LABS: Activated Partial Thrombo Time 30.9 Seconds (26.0-36.0)
[2019-12-12 13:21] LABS: Troponin I < 0.03 ng/mL (< 0.04)
[2019-12-12 13:22] LABS: Alanine Aminotransferase 10 Units/L (7-52); Albumin 3.5 g/dL (3.5-5.7); Alkaline Phosphatase 83 Units/L (34-104); Aspartate Amino Transferase 10 Units/L (13-39); BUN/Creatinine Ratio 18 (6-26); Bilirubin,Total 0.4 mg/dL (0.3-1.0); Blood Urea Nitrogen 28 mg/dL (8-23); Calcium 9.1 mg/dL (8.6-10.3); Carbon Dioxide 28 mEq/L (23-29); Chloride 106 mEq/L (98-107); Digoxin 0.9 ng/mL (0.8-2.0); Globulin 3.4 g/dL (2.4-3.5); Glucose 214 mg/dL (70-105); Osmolality,Calculated 296 (280-300); Potassium 4.1 mEq/L (3.5-5.1); Sodium 137 mEq/L (136-145); Total Protein 6.9 g/dL (6.4-8.9); eGFR For African Americans 52 (> 60); eGFR For Non-African Americans 43 (> 60)
[2019-12-12 13:31] LABS: Amylase 38 Units/L (29-103); Lipase 35 Units/L (11-82)
[2019-12-12 17:39] LABS: Bilirubin,Urine Negative (Negative); Blood,Urine Moderate (Negative); Clarity,Urine Slightly Cloudy (Clear); Color,Urine Yellow (Yellow); Glucose,Urine (UA) Normal (Normal); Ketones,Urine Negative (Negative); Leukocyte Esterase,Urine Trace (Negative); Nitrite,Urine Negative (Negative); PH,Urine 5.5 pH Units (5.0-8.0); Protein,Urine 100 mg/dL (Neg-Trace); Urobilinogen,Urine Normal (Normal)
[2019-12-12] MEDS ORDERED: Albuterol 2.5 MG/3 ML NEBULIZER IH PRN (17:39)
[2019-12-12 18:02] LABS: Squamous Epithelial Cell,Urine Many per lpf (None-Few)
[2019-12-12 18:04] LABS: Bacteria,Urine Moderate per hpf (None-Few); RBC,Urine 15-30 per hpf (0-3); WBC,Urine 15-30 per hpf (0-3)
[2019-12-13 06:02] LABS: Basophils % 0.4 %; Eosinophils # 0.1 K/mcL (0.0-0.6); Eosinophils % 1.3 %; Hematocrit 32.3 % (37.5-50.1); Hemoglobin 10.6 g/dL (12.9-16.9); Immature Granulocytes % 0.2 % (0-4); Lymphocytes # 1.2 K/mcL (0.6-4.6); Lymphocytes % 22.9 %; Mean Corpuscular HGB Conc 32.8 g/dL (31.6-35.5); Mean Corpuscular Hemoglobin 33.3 pg (28.0-33.3); Mean Corpuscular Volume 101.6 fL (83.0-100.0); Mean Platelet Volume 10.7 fL (9.4-12.4); Monocytes # 0.5 K/mcL (0.0-1.3); Monocytes % 9.7 %; Neutrophils # 3.5 K/mcL (1.6-8.9); Platelet Count 128 K/mcL (140-400); Red Blood Count 3.18 M/mcL (4.19-5.50); Red Cell Distribution Width 15.9 % (11.5-14.5); Segmented Neutrophils % 65.5 %; White Blood Count 5.4 K/mcL (4.3-11.1)
[2019-12-13 06:18] LABS: Albumin 3.3 g/dL (3.5-5.7); Albumin/Globulin Ratio 1.1 (1.1-2.2); Bilirubin,Total 0.4 mg/dL (0.3-1.0); Calcium 8.9 mg/dL (8.6-10.3); Globulin 2.9 g/dL (2.4-3.5); Potassium 3.9 mEq/L (3.5-5.1); Total Protein 6.2 g/dL (6.4-8.9)
[2019-12-13 07:35] VITALS: BP 152/82
[2019-12-13] MEDS ORDERED: carvediloL 6.25 MG TABLET PO SCH (08:00)
[2019-12-13] MEDS ORDERED: Multivit/Ca/Min/Fe/FA 1 TAB TABLET PO SCH (09:00)
[2019-12-13] MEDS ORDERED: *HR* Digoxin 0.125 MG TABLET PO SCH (09:00)
[2019-12-13] MEDS ORDERED: cefTRIAXone 1,000 MG in 0.9 % Sodium Chloride Mini Bag 100 ML IVPB ONE (10:17)
[2019-12-13 10:25] LABS: Estimated Average Glucose 128 mg/dl
== END 2019-12-13 11:55 | disposition home or self-care (01) ==
LOC: EMEROOGRE 12:23 → INPGRE 15:18 → INTOOBSV 15:18 → INPGRE 15:49
PROVIDERS: ADMIT Family Medicine; ATTEND Family Medicine